=== PATIENT | male | born 1980 | race Caucasian/White ===

== ENCOUNTER 2016-08-17 19:02 | Emergency (ER) | payer MEDICAID ==
[~2016-08-17] VITALS: Ht 177.8 cm; Wt 95.3 kg
[2016-08-17 19:05] VITALS: BP 158/93; PULSE 88; RESP 18; TEMP 97.8; O2SAT 100
--- NOTE | 2016-08-17 19:05 | NUR ---
Placed in room 1 . Placed on threat monitoring analyst, blood pressure machine and pulse oximeter. To gown for exam. Side rails up. Report given to Melania DAVIS.
--- NOTE | 2016-08-17 19:10 | NUR ---
DR. KEVIN AT BEDSIDE EXAMINING THE PT.
--- NOTE | 2016-08-17 19:16 | NUR ---
Pt. to ER AAOx4 presented from home for pressure like substernal chest pain that comes & goes for 2 days states that pain is radiating to left shoulder and feels like it fires to his left arm, denies SOB denies N/V/D denies headaches, on route vending machine servicer
[2016-08-17] MEDS ORDERED: ASPIRIN 81 MG TAB.CHEW PO ONE ×2 (19:30→20:30)
[2016-08-17] MEDS ORDERED: NITROGLYCERIN 1 INCH (GM) OINT. TP ONE (19:30)
--- NOTE | 2016-08-17 19:32 | NUR ---
LAB AT BEDSIDE FOR BLOOD DRAW
[2016-08-17 19:45] LABS: BILIRUBIN,URINE NEGATIVE (NEGATIVE); BLOOD, URINE NEGATIVE (NEGATIVE); CLARITY/URINE CLEAR (CLEAR); COLOR,URINE YELLOW (YELLOW); GLUCOSE,URINE NEGATIVE (NEGATIVE); KETONES,URINE NEGATIVE (NEGATIVE); LEUKOCYTE ESTERASE ,URINE NEGATIVE (NEGATIVE); NITRITE, URINE NEGATIVE (NEGATIVE); PROTEIN URINE NEGATIVE (NEGATIVE)
[2016-08-17 19:48] LABS: BASOPHILS % (AUTO) 0.3 % (0.0-2.0); EOSINOPHILS # (AUTO) 0.1 K/uL (0.0-0.4); EOSINOPHILS % (AUTO) 1.4 % (0.0-4.0); HEMATOCRIT 45.9 % (36-54); HEMOGLOBIN 15.4 g/dL (14.0-18.0); LYMPHOCYTES # (AUTO) 2.4 K/uL (1.0-5.5); LYMPHOCYTES % (AUTO) 26.8 % (20.5-51.5); MEAN CORPUSCULAR HEMOGLOBIN 27 pg (27-31); MEAN CORPUSCULAR HGB CONC 34 % (32-36); MEAN CORPUSCULAR VOLUME 82 fL (79.0-98.0); MONOCYTES # (AUTO) 0.7 K/uL (0.0-1.0); MONOCYTES % (AUTO) 7.6 % (1.7-9.3); NEUTROPHILS # (AUTO) 5.7 K/uL (1.8-7.7); NEUTROPHILS % (AUTO) 63.9 % (40.0-70.0); PLATELET COUNT (AUTO) 300 K/uL (130-430); RED BLOOD CELL COUNT(AUTO) 5.62 MIL/uL (4.2-6.2); RED CELL DISTRIBUTION WIDTH 12.5 % (9.0-15.0); WHITE BLOOD COUNT (AUTO) 8.9 K/uL (4.8-10.8)
[2016-08-17 19:50] LABS: CALCIUM 9.3 mg/dL (8.4-11.0); CREATININE 1.27 mg/dL (0.55-1.30); POTASSIUM 3.4 mmol/L (3.5-5.1)
[2016-08-17 19:53] LABS: INR 1.1 (0.80-1.20); PROTHROMBIN TIME 11.6 SECS (9.5-12.5)
[2016-08-17 19:55] LABS: ALBUMIN 4.4 g/dL (3.4-4.8); TOTAL BILIRUBIN 0.5 mg/dL (0.0-1.0); TOTAL PROTEIN, SERUM 7.6 g/dL (6.4-8.3)
[2016-08-17] MEDS ORDERED: NITROGLYCERIN 1 INCH (GM) OINT. ONE (19:57)
--- NOTE | 2016-08-17 20:00 | NUR ---
PT. TO THE BATHROOM AMBULATORY TOLERATED WELL
--- NOTE | 2016-08-17 20:10 | NUR ---
PT VERBALIZED COMFORT STATES HE FEELS OKAY NOW NO PRESSURE LIKE PAIN TO HIS CHEST OR ARM
[2016-08-17] MEDS ORDERED: NACL 0.9% 1,000 ML IV ONE (20:30)
--- NOTE | 2016-08-17 21:00 | NUR ---
LAB AT BEDSIDE FOR ANOTHER TROPONIN DRAW
[2016-08-17 22:00] VITALS: BP 121/79; PULSE 79; RESP 18; TEMP 98; O2SAT 100
--- NOTE | 2016-08-17 22:00 | NUR ---
Patient given written and verbal discharge instructions and verbalizes understanding. ER MD DR. GARCIA discussed with patient the results and treatment provided. Given copies of tests performed in ER. Patient in stable condition. ID arm band removed. IV catheter removed intact and dressing applied, no active bleeding. NO Rx given. Patient educated on pain management and to follow up with PMD. Pain Scale 0/10 Opportunity for questions provided and answered.
== END 2016-08-17 22:00 | disposition home or self-care (01) ==
LOC: SED 19:02
DX: R07.89 Other chest pain (principal); R03.0 Elevated blood-pressure reading, without diagnosis of hypertension; R06.02 Shortness of breath; Z87.891 Personal history of nicotine dependence
CPT/HCPCS: 36415; 71010; 80053; 81003; 83880; 84484; 85025; 85610; 93005; 96360; 99285; J7030

== ENCOUNTER 2016-10-01 19:26 | Emergency (ER) | payer MEDICAID ==
[~2016-10-01] VITALS: Ht 177.8 cm; Wt 93.0 kg
[2016-10-01 19:32] VITALS: BP_SYST 140
[2016-10-01 20:18] LABS: BILIRUBIN,URINE NEGATIVE (NEGATIVE); BLOOD, URINE NEGATIVE (NEGATIVE); CLARITY/URINE CLEAR (CLEAR); COLOR,URINE ORANGE (YELLOW); GLUCOSE,URINE NEGATIVE (NEGATIVE); KETONES,URINE NEGATIVE (NEGATIVE); LEUKOCYTE ESTERASE ,URINE NEGATIVE (NEGATIVE); NITRITE, URINE POSITIVE (NEGATIVE); PROTEIN URINE TRACE (NEGATIVE)
[2016-10-01 20:35] LABS: BACTERIA,URINE FEW /HPF (None Seen); RBC,URINE NONE SEEN /HPF (0-3)
[2016-10-01 20:36] LABS: MUCUS,URINE 1+ /LPF (None Seen)
[2016-10-01] MEDS ORDERED: AZITHROMYCIN 250 MG TABLET PO ONE (20:45)
[2016-10-01] MEDS ORDERED: cefTRIAXone 250 MG VIAL IM ONE (20:45)
[2016-10-01] MEDS ORDERED: LIDOCAINE 1%, 20 ML MDV 20 ML ONE (20:55)
[2016-10-01 21:19] VITALS: BP_SYST 138
== END 2016-10-01 21:19 | disposition home or self-care (01) ==
LOC: SED 19:26
DX: N39.0 Urinary tract infection, site not specified (principal)
CPT/HCPCS: 81000; 87086; 96372; 99284; J0696; J2001; Q0144

== ENCOUNTER 2017-04-05 10:03 | Emergency (ER) | payer MEDICAID ==
[~2017-04-05] VITALS: Ht 177.8 cm; Wt 90.7 kg
[2017-04-05 10:17] VITALS: BP_SYST 143
[2017-04-05] MEDS ORDERED: ONDANSETRON 4 MG ODT TAB PO ONE (11:15)
[2017-04-05] MEDS ORDERED: ONDANSETRON HCL 4 MG/2 ML VIAL IVP ONE (11:15)
[2017-04-05 11:21] VITALS: BP_SYST 143
== END 2017-04-05 11:20 | disposition home or self-care (01) ==
LOC: SED 10:03
DX: K21.9 Gastro-esophageal reflux disease without esophagitis (principal)
CPT/HCPCS: 99283; Q0162

== ENCOUNTER 2019-05-12 22:10 | Emergency (ER) | payer MEDICAID ==
[~2019-05-12] VITALS: Ht 177.8 cm; Wt 90.7 kg
[2019-05-12 22:50] VITALS: BP_SYST 128
--- NOTE | 2019-05-12 22:55 | NUR ---
Patient triaged and placed in waiting room. VSS and patient appears in no acute distress at this time. Accompanied by self, awaiting available bed, and MD notified of need for MSE.
--- NOTE | 2019-05-13 01:00 | NUR ---
Patient resting quietly. No acute distress noted. Vital signs within normal range.
--- NOTE | 2019-05-13 03:00 | NUR ---
Patient resting quietly. No acute distress noted. Vital signs within normal range.
--- NOTE | 2019-05-13 05:00 | NUR ---
Patient resting quietly. No acute distress noted. Vital signs within normal range.
--- NOTE | 2019-05-13 06:00 | NUR ---
Called pt in, no answer
--- NOTE | 2019-05-13 06:00 | NUR ---
Patient left without being seen. No further treatment provided. ER MD aware
== END 2019-05-13 06:00 | disposition left against medical advice (07) ==
LOC: SED 22:10
DX: R20.0 Anesthesia of skin (principal); Z53.21 Procedure and treatment not carried out due to patient leaving prior to being seen by health care provider